=== PATIENT | male | born 1980 | race African-American/Black ===

== ENCOUNTER 2023-12-08 18:52 | Emergency (ER) | payer SELFPAY ==
[~2023-12-08] VITALS: Ht 188 cm; Wt 131.8 kg
[2023-12-08 19:04] VITALS: TEMP 98.2
[2023-12-08] MEDS ORDERED: Morphine 4 MG/ML VIAL IV ONE (19:45)
[2023-12-08 20:15] LABS: BASO # 0.1 K/mm3 (0.0-0.2); EOS # 0.3 K/mm3 (0.0-0.7); EOS % 4.2 % (0.0-4.0); GRAN # 2.3 K/mm3 (1.4-6.5); GRAN % 36.8 % (42.2-75.2); HEMATOCRIT 42.2 % (42.0-52.0); HEMOGLOBIN 14.5 g/dl (13.5-18.0); LYMPH % 47.6 % (20.0-51.0); MEAN CELL VOLUME 90 fl (80.0-100.0); MEAN CORPUSCULAR HEMOGLOBIN 31 pg (27-31); MEAN CORPUSCULAR HGB CONC 34 g/dl (33.0-37.0); MEAN PLATELET VOLUME 9.8 fl (7.4-10.4); MONO # 0.7 K/mm3 (0.1-0.6); MONO % 10.4 % (1.7-9.3); PLATELET COUNT 219 K/mm3 (130-400); RED BLOOD COUNT 4.68 M/mm3 (4.20-5.60); REDCELL DISTRIBUTION WIDTH-CV 12.9 % (11.5-14.5)
[2023-12-08 20:16] LABS: PH 5.5 (5.0-8.5); URINE APPEARANCE CLEAR (CLEAR/HAZY); URINE BLOOD 1+ (NEGATIVE); URINE COLOR YELLOW (YELLOW); URINE GLUCOSE NEGATIVE (NEGATIVE); URINE KETONE TRACE (NEGATIVE); URINE NITRATE NEGATIVE (NEGATIVE); URINE PROTEIN(semi-quant) NEGATIVE (NEGATIVE); URINE UROBILINOGEN 0.2 E.U/dL (0.2-1.0)
[2023-12-08 20:35] LABS: COLLECTION METHOD CLEAN CATCH
[2023-12-08 20:40] LABS: ALBUMIN 3.9 g/dL (3.5-5.0); BILIRUBIN,TOTAL 0.2 mg/dL (0.2-1.2); C-REACTIVE PROTEIN 0.13 mg/dL (0.00-0.50); CALCIUM 9.4 mg/dL (8.4-10.2); CREATININE, serum 1.47 mg/dL (0.72-1.25); POTASSIUM 3.9 mEq/L (3.5-4.5); TOTAL PROTEIN 7.1 g/dl (6.2-8.1)
[2023-12-08] MEDS ORDERED: NS 1,000 ML IV ONE (20:45)
[2023-12-08] MEDS ORDERED: hydrALAZINE 20 MG/ML 1 ML VIAL IV ONE (20:45)
[2023-12-08] MEDS ORDERED: Iohexol 300 - 100 ML VIAL IV ONE (21:40)
[2023-12-08] MEDS ORDERED: NS 50 ML IV SCH (21:40)
[2023-12-08] MEDS ORDERED: HYDROmorphone 0.5 MG/0.5 ML SYRINGE IV ONE (22:00)
[2023-12-08] MEDS ORDERED: CEPHALEXIN500 M1 PO (23:14)
[2023-12-08] MEDS ORDERED: amLODIPine 10 MG TAB PO ONE (23:15)
[2023-12-08] MEDS ORDERED: Home HYDROcodone/Acetaminophen 5/325 MG #4 TABS/PACK PO ONE (23:15)
[2023-12-08] MEDS ORDERED: NORVASC 5MG5 MG/TAB PO (23:15)
[2023-12-08] MEDS ORDERED: NORCO 325 MG-51 TAB PO (23:15)
[2023-12-08] MEDS ORDERED: Cephalexin 500 MG CAP PO ONE (23:15)
[2023-12-08 23:20] VITALS: BP 172/118; PULSE 78
[2023-12-09] MEDS ORDERED: NORCO 325 MG-51 TAB PO (13:24)
[2023-12-09] MEDS ORDERED: NORVASC 5MG5 MG/TAB PO (13:24)
[2023-12-09] MEDS ORDERED: CEPHALEXIN500 M1 PO (13:24)
== END 2023-12-08 23:35 | disposition home or self-care (01) ==
LOC: COL.ER 18:52
PROVIDERS: Nurse Practitioner
DX: K42.9 Umbilical hernia without obstruction or gangrene (principal); L03.311 Cellulitis of abdominal wall; I10 Essential (primary) hypertension; F17.210 Nicotine dependence, cigarettes, uncomplicated
CPT/HCPCS: J0360; J1171; J2270; J7030; Q9967